=== PATIENT | male | born 1995 | race Caucasian/White ===

== ENCOUNTER 2017-01-25 14:01 | Emergency (ER) | payer MEDICAID, OTHER ==
[2017-01-25 14:40] LABS: Bilirubin Negative (Negative); Blood, Urine Negative (Negative); Glucose, Urine (Dipstick) Negative (Negative); Ketone, Urine Negative (Negative); Nitrite Negative (Negative); Protein, Urine (Dipstick) Trace mg/dL (Neg-Trace)
[2017-01-25 14:49] LABS: Amphetamine Not Detected (NotDetected); Methadone Not Detected (NotDetected); Methamphetamine Not Detected (NotDetected)
[2017-01-25] MEDS ORDERED: Lorazepam 1 MG TAB ONE (15:03)
[2017-01-25 15:13] LABS: #Eosinphils 0.2 thou/uL (0.0-0.7); #Lymphocytes 1.5 thou/uL (1.20-3.40); #Monocytes 0.7 thou/uL (0.11-0.59); %Basophils 0.6 % (0.0-1.0); %Eosinophils 2.3 % (0.0-10.0); %Lymphocytes 20.8 % (21.0-51.0); %Monocytes 8.8 % (0.0-10.0); Mean Platelet Volume 7.2 fL (7.4-10.4); Red Blood Cell (RBC) Count 4.97 mill/uL (4.70-6.10); White Blood Cell (WBC) Count 7.4 thou/uL (4.8-10.8)
--- NOTE | 2017-01-25 15:21 | RAD ---
PORTABLE CHEST ONE VIEW: Date: 01-25-17 Time: 2:55 p.m. History: Chest pain. FINDINGS: Comparison made with exam of 03-13-15. The heart size is normal. The lungs are well expanded without focal areas of consolidation, pneumoth orax, or pleural effusions. No acute osseous abnormality is seen. IMPRESSION: No radiographic evidence of acute cardiopulmonary process. POS: [facility]
[2017-01-25 15:27] LABS: Acetaminophen Less than 6.0 mcg/mL (10.0-30.0); Salicylate Less than 8.0 mg/dL (15.0-30.0)
[2017-01-25 15:28] LABS: ALT (SGPT) 34 U/L (8-55); AST (SGOT) 19 U/L (5-34); Alkaline Phosphatase 64 U/L (40-150); Anion Gap 10 mmol/L (10-20); BUN (Urea Nitrogen) 15 mg/dL (8.9-20.6); Bilirubin, Total 0.7 mg/dL (0.2-1.2); CK (CPK) 175 U/L (30-200); Calc. Creatinine Clearance 0 mL/min (70-130); Calcium 9.5 mg/dL (7.8-10.44); Carbon Dioxide 27 mmol/L (22-29); Chloride 105 mmol/L (98-107); Estimated GFR-MDRD Greater than 90; Globulin 2.7 g/dL (2.4-3.5); Protein, Total 7.2 g/dL (6.0-8.3)
[2017-01-25 15:44] LABS: Troponin I Less than 0.010 ng/mL (< 0.028)
== END 2017-01-25 19:32 | disposition home or self-care (01) ==
LOC: ERS 14:01
DX: F41.1 Generalized anxiety disorder (principal); I49.9 Cardiac arrhythmia, unspecified; F17.210 Nicotine dependence, cigarettes, uncomplicated; F41.9 Anxiety disorder, unspecified; F31.9 Bipolar disorder, unspecified
CPT/HCPCS: 36415; 71010; 80053; 80306; 80307; 81003; 82550; 82553; 84443; 84484; 85025; 93005; 99406

== ENCOUNTER 2017-02-14 09:40 | Emergency (ER) | payer MEDICAID, OTHER ==
[2017-02-14] MEDS ORDERED: Ondansetron ODT 8 MG TAB ONE ×2 (09:48→10:48)
[2017-02-14] MEDS ORDERED: Lidocaine Viscous Sol 2% 15 ml UD Cup ONE (10:47)
[2017-02-14] MEDS ORDERED: Mag-Al 1200 mg/1200 mg/30 ML UDCUP ONE (10:47)
== END 2017-02-14 12:24 | disposition home or self-care (01) ==
LOC: ERS 09:40
DX: K29.70 Gastritis, unspecified, without bleeding (principal)
CPT/HCPCS: 99406

== ENCOUNTER 2017-04-09 10:28 | Emergency (ER) | payer OTHER ==
--- NOTE | 2017-04-09 12:44 | ULT ---
TESTICULAR ULTRASOUND: History: Pain. Comparison: 11-25-15 FINDINGS: Right testicle measures 4.5 x 2.0 x 2.5 cm. Left testicle measures 4.2 x 3 x 2.3 cm. Left epididymi a re seen. There is adequate vascular flow to both testicles. No abnormal areas of increased vascular f low. No significant hydrocele. Echotexture is normal. IMPRESSION: Normal exam. POS: [facility]
[2017-04-09 13:21] LABS: #Basophils 0.1 thou/uL (0.0-0.2); #Lymphocytes 2.5 thou/uL (1.20-3.40); #Monocytes 0.9 thou/uL (0.11-0.59); #Neutrophils 6.8 thou/uL (1.40-6.50); %Basophils 0.7 % (0.0-1.0); %Eosinophils 0.5 % (0.0-10.0); %Lymphocytes 24.2 % (21.0-51.0); %Monocytes 8.8 % (0.0-10.0); %Neutrophils 65.7 % (42.0-75.0); Hemoglobin 17.4 g/dL (14.0-18.0); Mean Corpuscular HGB CONC 35.2 g/dL (32.0-36.0); Mean Corpuscular Volume 93.9 fl (80.0-94.0); Mean Platelet Volume 7.2 fL (7.4-10.4); Platelet Count 308 thou/uL (130-400); RBC Distribution Width 11.7 % (11.5-14.5); Red Blood Cell (RBC) Count 5.27 mill/uL (4.70-6.10); White Blood Cell (WBC) Count 10.3 thou/uL (4.8-10.8)
[2017-04-09 13:44] LABS: ALT (SGPT) 38 U/L (8-55); AST (SGOT) 26 U/L (5-34); Albumin 5.3 g/dL (3.5-5.0); Alkaline Phosphatase 67 U/L (40-150); Anion Gap 17 mmol/L (10-20); BUN (Urea Nitrogen) 13 mg/dL (8.9-20.6); Bilirubin, Total 1.2 mg/dL (0.2-1.2); Calc. Creatinine Clearance 0 mL/min (70-130); Calcium 10.6 mg/dL (7.8-10.44); Carbon Dioxide 23 mmol/L (22-29); Chloride 104 mmol/L (98-107); Estimated GFR-MDRD Greater than 90; Globulin 2.8 g/dL (2.4-3.5); Glucose 92 mg/dL (70-105); Potassium 3.7 mmol/L (3.5-5.1); Protein, Total 8.1 g/dL (6.0-8.3); Sodium 140 mmol/L (136-145)
[2017-04-09 14:23] LABS: Bilirubin Moderate (Negative); Blood, Urine Negative (Negative); Clarity CLEAR (Clear); Glucose, Urine (Dipstick) Negative (Negative); Leukocyte Trace (Negative); Nitrite Negative (Negative); Protein, Urine (Dipstick) 30 mg/dL (Neg-Trace); Specific Gravity, Urine 1.035 (1.002-1.036); pH, Urine 6.5 (5.0-9.0)
[2017-04-09 14:30] LABS: Bacteria/HPF None Seen HPF (None Seen); Hyaline Casts/LPF 4-6 HYALINE CAST LPF (0-3 Hyaline); Squamous Epithelial None Seen HPF (0-3); WBC/HPF 0-3 HPF (0-3)
[2017-04-09 14:35] LABS: RBC/HPF None Seen HPF (0-3)
[2017-04-11 01:13] LABS: Chlamydia by PCR Not Detected (NotDetected); GC by PCR Not Detected (NotDetected)
== END 2017-04-09 15:30 | disposition home or self-care (01) ==
LOC: ERS 10:28
DX: N39.0 Urinary tract infection, site not specified (principal)
CPT/HCPCS: 36415; 76870; 80053; 81003; 81015; 85025; 87086; 87491; 87591; 93976

== ENCOUNTER 2017-05-01 22:32 | Emergency (ER) | payer MEDICAID, OTHER ==
[2017-05-02 00:53] LABS: Bilirubin Negative (Negative); Blood, Urine Trace (Negative); Clarity CLEAR (Clear); Glucose, Urine (Dipstick) Negative (Negative); Leukocyte Negative (Negative); Nitrite Negative (Negative); Protein, Urine (Dipstick) Trace mg/dL (Neg-Trace); Specific Gravity, Urine 1.029 (1.002-1.036)
[2017-05-02 00:55] LABS: Bacteria/HPF None Seen HPF (None Seen); Hyaline Casts/LPF 4-6 HYALINE CAST LPF (0-3 Hyaline); Pathc Cast-AUWi Flag 0.27 (0-2.49); Squamous Epithelial 0-3 HPF (0-3); WBC/HPF 0-3 HPF (0-3)
--- NOTE | 2017-05-02 07:51 | ULT ---
PRELIMINARY REPORT/[facility]/EMERGENCY AFTER HOURS PROCEDURE: EXAM: US Scrotum EXAM DATE/TIME: 05/02/2017 12:24 AM CLINICAL HISTORY: Pain and signs and symptoms; Other: Knot felt to left of left testicle; Groin pain TECHNIQUE: Real-time ultrasound of the scrotum with color Doppler and image documentation. COMPARISON: No relevant prior studies available. FINDINGS: Right testicle: Unremarkable. No mass. No torsion. Left testicle: Unremarkable. No mass. No torsion. Epididymides: 2 mm and 4 mm left epididymal head cysts. Visualized portions of the right epididymis a re unremarkable. Scrotum: Left sided varicoceles. IMPRESSION: Left sided varicoceles. ---We are pleased to participate in the care of your patient.--- Thank you for allowing us to participate in the care of your patient. Dictated and Authenticated by: Barak Antoine MD 05/02/2017 1:01 AM Central Time ([place] & [place]) FINAL REPORT BILATERAL TESTICULAR ULTRASOUND WITH DOPPLER: I agree with the preliminary report given by Dr. Barak Antoine of [facility]. POS: [facility]
[2017-05-04 01:40] LABS: Chlamydia by PCR Not Detected (NotDetected); GC by PCR Not Detected (NotDetected)
== END 2017-05-02 01:22 | disposition home or self-care (01) ==
LOC: ERS 22:32
DX: I86.1 Scrotal varices (principal); F17.210 Nicotine dependence, cigarettes, uncomplicated
CPT/HCPCS: 76870; 81003; 81015; 87491; 87591; 93976

== ENCOUNTER 2017-09-25 20:09 | Emergency (ER) | payer MEDICAID, OTHER ==
[2017-09-25] MEDS ORDERED: Lorazepam 2 MG/ML VIAL ONE ×2 (21:04→21:49)
[2017-09-25 21:05] LABS: #Eosinphils 0.5 thou/uL (0.0-0.7); #Lymphocytes 1.8 thou/uL (1.20-3.40); #Monocytes 0.4 thou/uL (0.11-0.59); #Neutrophils 7.5 thou/uL (1.40-6.50); %Basophils 0.4 % (0.0-1.0); %Eosinophils 4.5 % (0.0-10.0); %Lymphocytes 17.7 % (21.0-51.0); %Monocytes 3.5 % (0.0-10.0); %Neutrophils 73.9 % (42.0-75.0); Hemoglobin 16.1 g/dL (14.0-18.0); Mean Corpuscular HGB CONC 35.6 g/dL (32.0-36.0); Mean Corpuscular Hemoglobin 32.8 pg (27.0-31.0); Mean Corpuscular Volume 92.3 fL (78.0-98.0); Mean Platelet Volume 6.5 fL (7.4-10.4); Platelet Count 260 thou/uL (130-400); RBC Distribution Width 12.1 % (11.5-14.5); Red Blood Cell (RBC) Count 4.91 mill/uL (4.70-6.10); White Blood Cell (WBC) Count 10.2 thou/uL (4.8-10.8)
[2017-09-25 21:28] LABS: ALT (SGPT) 38 U/L (8-55); AST (SGOT) 34 U/L (5-34); Albumin 4.5 g/dL (3.5-5.0); Alkaline Phosphatase 82 U/L (40-150); Anion Gap 14 mmol/L (10-20); BUN (Urea Nitrogen) 10 mg/dL (8.9-20.6); Bilirubin, Total 0.4 mg/dL (0.2-1.2); Calc. Creatinine Clearance 0 mL/min (70-130); Calcium 8.6 mg/dL (7.8-10.44); Carbon Dioxide 20 mmol/L (22-29); Chloride 110 mmol/L (98-107); Estimated GFR-MDRD Greater than 90; Globulin 2.5 g/dL (2.4-3.5); Glucose 104 mg/dL (70-105); Sodium 141 mmol/L (136-145)
[2017-09-25 21:38] LABS: Acetaminophen Less than 6.0 mcg/mL (10.0-30.0); Alcohol 332 mg/dL (Less than 10); Salicylate Less than 8.0 mg/dL (15.0-30.0)
[2017-09-25 22:08] LABS: Amphetamine Not Detected (NotDetected); Barbiturates Screen Not Detected (NotDetected); Benzodiazepine Screen Not Detected (NotDetected); Cocaine Metabolite Screen Not Detected (NotDetected); Medtox Control Line Valid? VALID (VALID); Medtox Reader # READER 1; Methadone Not Detected (NotDetected); Methamphetamine Not Detected (NotDetected); Opiate Screen Not Detected (NotDetected); Oxycodone Screen Not Detected (NotDetected); Phencyclidine (PCP) Not Detected (NotDetected); THC/Cannabinoid Screen Detected (NotDetected); Tricyclic Screen Not Detected (NotDetected)
== END 2017-09-25 22:48 ==
LOC: ERS 20:09
DX: F10.129 Alcohol abuse with intoxication, unspecified (principal); Y90.8 Blood alcohol level of 240 mg/100 ml or more; F17.210 Nicotine dependence, cigarettes, uncomplicated; F17.290 Nicotine dependence, other tobacco product, uncomplicated
CPT/HCPCS: 36415; 80053; 80306; 80307; 82550; 85025; 96374; 96376; J2060

== ENCOUNTER 2017-10-20 02:42 | Emergency (ER) | payer OTHER ==
[2017-10-20 04:16] LABS: #Basophils 0.1 thou/uL (0.0-0.2); #Eosinphils 1.1 thou/uL (0.0-0.7); #Lymphocytes 2.6 thou/uL (1.20-3.40); #Monocytes 0.6 thou/uL (0.11-0.59); #Neutrophils 4.5 thou/uL (1.40-6.50); %Basophils 0.8 % (0.0-1.0); %Eosinophils 12.3 % (0.0-10.0); %Lymphocytes 29.2 % (21.0-51.0); %Monocytes 6.7 % (0.0-10.0); %Neutrophils 50.9 % (42.0-75.0); Hemoglobin 16.6 g/dL (14.0-18.0); Mean Corpuscular Hemoglobin 33.9 pg (27.0-31.0); Mean Corpuscular Volume 94.2 fL (78.0-98.0); Mean Platelet Volume 6.8 fL (7.4-10.4); Platelet Count 250 thou/uL (130-400); RBC Distribution Width 12.3 % (11.5-14.5); Red Blood Cell (RBC) Count 4.91 mill/uL (4.70-6.10); White Blood Cell (WBC) Count 8.8 thou/uL (4.8-10.8)
[2017-10-20 04:39] LABS: ALT (SGPT) 75 U/L (8-55); AST (SGOT) 42 U/L (5-34); Albumin 4.5 g/dL (3.5-5.0); Alkaline Phosphatase 77 U/L (40-150); Anion Gap 13 mmol/L (10-20); BUN (Urea Nitrogen) 18 mg/dL (8.9-20.6); Bilirubin, Total 0.3 mg/dL (0.2-1.2); Calc. Creatinine Clearance 0 mL/min (70-130); Calcium 9.8 mg/dL (7.8-10.44); Carbon Dioxide 23 mmol/L (22-29); Chloride 106 mmol/L (98-107); Estimated GFR-MDRD Greater than 90; Globulin 2.4 g/dL (2.4-3.5); Glucose 98 mg/dL (70-105); Lipase 26 U/L (8-78); Magnesium 2.5 mg/dL (1.6-2.6); Potassium 4.1 mmol/L (3.5-5.1); Protein, Total 6.9 g/dL (6.0-8.3); Sodium 138 mmol/L (136-145)
== END 2017-10-20 05:27 | disposition home or self-care (01) ==
LOC: ERS 02:42
DX: K29.70 Gastritis, unspecified, without bleeding (principal); F10.10 Alcohol abuse, uncomplicated; F17.210 Nicotine dependence, cigarettes, uncomplicated
CPT/HCPCS: 36415; 80053; 83690; 83735; 85025; 93005